=== PATIENT | female | born 1960 | race Caucasian/White ===

== ENCOUNTER → 2019-09-08 09:00 | Outpatient (CLI) | payer BC, SELFPAY ==
--- NOTE | ~2019-09-08 | DEXA_ITS ---
Bone Density Report Name: Nguyen Steward Age: 59 Sex: Female Ethnicity: White Date of : 1960 Indication: postmenopausal; screening for osteoporosis; height loss; prior fracture; Referring Provider: RACHELE HOSKINS Study: Bone densitometry was performed. Exam Date: September 08, 2019 Accession number: [id number] Bone Density: Region BMD T-score Z-score Classification AP Spine (L1-L4) 0.707 -3.1 -1.7 Osteoporosis Femoral Neck (Left) 0.618 -2.1 -0.8 Osteopenia Total Hip (Left) 0.739 -1.7 -0.7 Osteopenia Femoral Neck (Right) 0.588 -2.4 -1.1 Osteopenia Total Hip (Right) 0.729 -1.7 -0.8 Osteopenia Total Hip Mean 0.734 -1.7 -0.8 Osteopenia World Health Organization criteria for BMD impression classify patients as: Normal (T-score at or above -1.0), Osteopenia (T-score between -1.0 and -2.5), or Osteoporosis (T-score at or below -2.5). 10-year Fracture Risk: FRAX not reported because: Some T-score for Spine Total or Hip Total or Femoral Neck at or below -2.5 Clinical Information Provided by Patient: Has had a low trauma fracture Has used the following medications: Vitamin D Patient maximum height was 65.0 Menopause Age: 55 Onset of menses at age 13 Number of children 2 Impression: The patient has established osteoporosis, based on the Total Spine T-score and the existence of a prior fracture. The patient has risk factors, including: previous fracture. Discussion: HIGH RISK OF FRACTURE. BONE DENSITY IS UNDESIRABLY LOW AT ONE OR MORE SKELETAL SITES, CONSISTENT WITH POSTMENOPAUSAL OSTEOPOROSIS. This patient's lowest T-score, in a patient who has previously fractured, meets the World Health Organization's (WHO) criteria for severe osteoporosis. In untreated patients, the risk of osteoporotic fracture increases approximately two-fold for each 1.0 SD decrease in T-score. Low bone density is not the only risk factor for fracture; also consider factors such as patient's age, frailty or poor health, risk of falling, risk of injury, previous osteoporotic fracture, family history of osteoporosis, cigarette smoking, low body weight, etc. Not everyone with low bone mineral density has osteoporosis; osteomalacia and other metabolic bone disorders should also be considered. Patients who have osteoporosis should be evaluated for specific diseases and conditions (secondary causes) that may cause or contribute to bone loss. The [place] [employer]ocr[employer] (AACE) and National Osteoporosis Foundation (NOF) recommend pharmacologic intervention for all postmenopausal women whose T-score is in this range. The patient should follow a healthful lifestyle (good nutrition with adequate calcium and vitamin D, and appropriate weight-bearing exercise). Follow-Up: Consider a repeat BMD and Vertebral Fracture Assessmen
== END ==
PROVIDERS: PCP Orthopaedic Surgery; Visit Provider Orthopaedic Surgery
DX: M81.0 Age-related osteoporosis without current pathological fracture (principal); Z78.0 Asymptomatic menopausal state; M85.851 Other specified disorders of bone density and structure, right thigh; M85.852 Other specified disorders of bone density and structure, left thigh
CPT/HCPCS: 77080

== ENCOUNTER 2022-06-10 16:31 | Emergency (ER) | payer BC, SELFPAY ==
--- NOTE | ~2022-06-10 | XR_ITS ---
XR chest 2V DATE: 06/10/2022 17:17 INDICATION: Midsternal chest pain for 4 days. TECHNIQUE: PA and lateral views COMPARISON: 08/23/2017 CTA chest 08/23/2017 PA and lateral chest FINDINGS: Normal heart size. No hilar or mediastinal enlargement. Moderate bilateral hyperinflation. No pulmonary infiltrate or consolidation, pleural effusion or pulmonary vascular congestion or pneumo thorax. Scoliosis and degenerative spurring of the thoracic spine. Osteopenia. Screws are noted in the right shoulder area. IMPRESSION: Moderate hyperinflation; no active cardiopulmonary disease or significant change since Reviewed, dictated and finalized at location A. IMPRESSION: Moderate hyperinflation; no active cardiopulmonary disease or signi ficant change since 08/23/2017
--- NOTE | 2022-06-10 16:33 | ECG_ITS ---
Measurements Intervals [place] Rate: 67 P: 63 AK: 159 QRS: 36 QRSD: 91 T: 44 QT: 401 QTc: 426 Interpretive Statements SINUS RHYTHM NORMAL ECG NO PREVIOUS ECG AVAILABLE FOR COMPARISON Electronically Signed On 06-10-2022 21:04:11 CDT by Caesar Whitlock D.O.
[2022-06-10 17:00] VITALS: BP 126/79; PULSE 70; RESP 16; TEMP 36.7; O2SAT 98
[2022-06-10 17:00] LABS: Basophils Absolute Auto 0.1 K/mm3 (0.0-0.1); Basophils Percent Auto 0.6 % (0.2-1.2); Eosinophils Absolute Auto 0.3 K/mm3 (0-0.3); Eosinophils Percent Auto 3.9 % (0-4.4); Hematocrit 39.2 % (37.0-47.0); Immature Granulocyte Absolute 0.02 K/mm3 (0.00-0.031); Immature Granulocyte Percent A 0.3 % (0-0.5); Lymphocytes Absolute Auto 3.96 K/mm3 (0.9-3.2); Lymphocytes Percent Auto 51.1 % (18.3-44.2); Mean Corpuscular HGB Conc 33.2 g/dl (32-36); Mean Corpuscular Volume 87.5 fl (80-100); Mean Platelet Volume 8.9 fl (7.4-10.4); Monocytes Absolute Auto 0.6 K/mm3 (0.1-0.6); Monocytes Percent Auto 7.2 % (2.6-8.5); Neutrophils Absolute Auto 2.9 K/mm3 (1.3-6.7); Neutrophils Percent Auto 36.9 % (45.5-73.1); Platelet Count Result 250 k/mm3 (150-375); Red Blood Count 4.48 M/mm3 (4.2-5.4); Red Cell Distribution Width 12.7 % (11.5-14.5); White Blood Count 7.8 K/mm3 (4.5-10.0)
[2022-06-10 17:12] LABS: Potassium 3.6 mmol/L (3.4-5.0)
[2022-06-10 17:23] LABS: Alanine Aminotransferase 26 U/L (6-35); Albumin Level 4.5 g/dL (3.5-5.1); Alkaline Phosphatase 56 U/L (38-126); Anion Gap 13 mmol/L (8-16); Aspartate Amino Transferase 32 U/L (14-36); Bilirubin,Total 0.2 mg/dL (0.2-1.3); Blood Urea Nitrogen 16 mg/dL (7-17); Calcium 8.6 mg/dL (8.4-10.2); Carbon Dioxide 25 mmol/L (22-30); Chloride 102 mmol/L (98-107); Estimated CRCL calculation 55 ml/min; Estimated Glomerular Filt Rate > 60; Glucose 107 mg/dL (65-110); Lipase 109 U/L (23-300); Sodium 140 mmol/L (137-145)
[2022-06-10 17:24] LABS: Troponin I < 0.012 ng/mL (0.000-0.034)
[2022-06-10 17:30] LABS: Partial Thromboplastin Time 27.2 SECONDS (22.3-36.8)
[2022-06-10 19:20] VITALS: BP 141/87; PULSE 61; RESP 183; O2SAT 100
--- NOTE | 2022-06-10 19:43 | ED.CHESTPAIN ---
HPI - Chest Pain General Chief Complaint: Chest Pain Stated Complaint: CHEST PAIN [id number] Time Seen by Provider: 06/10/22 19:05 History of Present Illness HPI narrative: Patient is a 61-year-old female who presents ER with chest discomfort. Reports she had 1 episode 5 days ago that occurred while she was helping move some items off of the truck. There is aching and went away with drinking glass water. Today patient was laying on a couch when she started having aching chest pressure as well as aching in bilateral jaws. She then felt some discomfort in her right shoulder. Symptoms lasted several minutes and then laterally on the arm. No diaphoresis or nausea or vomiting or dizziness. No exertional chest discomfort today. Reports regular exercising and walks 2 miles to work and 2 miles back each day. No history of cardiac disease. Reports she has been treated hyperlipidemia. She is a non-smoker. Patient unsure if she could have acid reflux as she also does not typically have those symptoms either. Due to recurrence of symptoms she felt evaluation will be pertinent. Related Data Home Medications Medication Instructions Recorded Confirmed niacin 500 mg tablet 500 mg PO DAILY 06/27/19 12/19/19 zinc 50 mg tablet (Chelated Zinc) 50 mg PO DAILY 06/27/19 12/19/19 calcium citrate 1,000 mg tablet 1,000 mg PO BID 09/22/19 12/19/19 ascorbic acid (vitamin C) 500 mg mg PO 10/07/19 12/19/19 capsule elderberry fruit 200 mg capsule mg PO 10/07/19 12/19/19 ferrous sulfate 325 mg (65 mg 325 mg PO DAILY 10/07/19 12/19/19 iron) tablet (Feosol) vitamin A 2,400 mcg capsule 8,000 unit PO DAILY 10/07/19 12/19/19 vitamin B comp and C no.3 15 mg-10 1 cap PO DAILY 10/07/19 12/19/19 mg-50 mg-5 mg-300 mg capsule (B Complex Plus Vitamin C) cholecalciferol (vitamin D3) 125 125 mcg PO DAILY 12/19/19 12/19/19 mcg (5,000 unit) capsule Allergies Allergy/AdvReac Type Severity Reaction Status Date / Time hydromorphone [From Dilaudid] Allergy Hallucinati Verified 01/03/20 09:03 ng tramadol AdvReac Mild vomit Verified 01/03/20 09:03 acetaminophen AdvReac Vomiting Verified 01/03/20 09:03 [From Tylenol-Codeine] codeine AdvReac Vomiting Verified 01/03/20 09:03 [From Tylenol-Codeine] GENERAL ANESTHESIA AdvReac Unknown Vomiting Uncoded 01/03/20 09:03 Review of Systems Review of Systems: All systems reviewed & are unremarkable except as noted in HPI and below Constitutional: Constitutional: Denies chills, Denies fatigue and Denies fever(s) ENT: Denies nasal congestion and Denies sore throat Cardiovascular: Cardiovascular: Reports chest pain, Denies rapid heart rate, Reports radiating jaw, neck or arm pain and Denies slow heart rate Respiratory: Respiratory: Denies cough and Denies dyspnea Gastrointestinal: Gastrointestinal: Denies abdominal pain, Denies nausea and Denies vomiting Musculoskeletal: Musculoskeletal: Denies arthralgias and Denies joint swelling PMFSH Past Medical History Medical History (Updated 06/10/22 @ 20:30 by Juan A Squires MD) Complex posttraumatic stress disorder COVID-19 Depression Fracture, ankle Right Hammer toe Knee pain Neck pain Urinary frequency Surgical History Surgical History (Updated 06/27/19 @ 08:09 by Debra Barry [facility]) H/O section H/O shoulder surgery Right 2017 Family History Family History (Updated 06/27/19 @ 08:09 by Debra Barry [facility]) Father Alzheimer disease Mother Hypertension Cancer Alzheimer disease Social History Social History (Updated 06/27/19 @ 08:10 by Debra Barry [facility]) Smoking status: Never smoker Alcohol intake: current Alcohol use details: Pt drinks socially. Substance use: never Gender identity (if verbalized by the patient): Female Exam Narrative: GENERAL: Well-appearing, well-nourished, and in no acute distress. HEAD: Normocephalic, atraumatic. EYES: PERRL and EOMI. CHEST: Clear to auscult
[2022-06-10 20:22] LABS: Troponin I < 0.012 ng/mL (0.000-0.034)
[2022-06-10 20:34] VITALS: BP 144/93; PULSE 60; RESP 18; O2SAT 100
== END 2022-06-10 20:38 | disposition home or self-care (01) ==
PROVIDERS: Emergency Medicine; Emergency Provider Emergency Medicine; PCP Family Medicine
DX: R07.89 Other chest pain (principal); E78.5 Hyperlipidemia, unspecified; Z86.16 Personal history of COVID-19
CPT/HCPCS: 36415; 71046; 80053; 83690; 84484; 85025; 85610; 85730; 93005; 99284

== ENCOUNTER 2024-10-18 15:06 | Emergency (ER) | payer MEDICARE, SELFPAY ==
[2024-10-18 15:18] VITALS: BP 147/68; PULSE 76; RESP 16; TEMP 37; O2SAT 99
--- NOTE | 2024-10-18 15:24 | ED_ITS ---
HPI - General Adult General Chief complaint: Allergic Reaction Stated complaint: High B/P, Allergic Reaction Time Seen by Provider: 10/18/24 15:20 Source: patient, RN notes reviewed and old records reviewed Mode of arrival: ambulatory Limitations: no limitations History of Present Illness HPI narrative: 64-year-old female presents [facility] with concerns for a reaction to a medication. In to have her blood pressure checked. Patient reports yesterday she saw an orthopedic, had a steroid injection into the left shoulder due to tendinitis. States that she woke up in middle the night feeling sweaty and flushed. [place] flushed at work, blood pressure was checked at work. States it was elevated. Onset (ago): hour(s) Related Data Home Medications ?Medication ?Instructions ?Recorded ?Confirmed ?Last Taken ?Type niacin 500 mg tablet 500 mg PO DAILY 06/27/19 12/19/19 Unknown History zinc 50 mg tablet (Chelated Zinc) 50 mg PO DAILY 06/27/19 12/19/19 Unknown History calcium citrate 1,000 mg tablet 1,000 mg PO BID 09/22/19 12/19/19 Unknown History ascorbic acid (vitamin C) 500 mg mg PO 10/07/19 12/19/19 Unknown History capsule elderberry fruit 200 mg capsule mg PO 10/07/19 12/19/19 Unknown History ferrous sulfate 325 mg (65 mg 325 mg PO DAILY 10/07/19 12/19/19 Unknown History iron) tablet (Feosol) vitamin A 2,400 mcg capsule 8,000 unit PO DAILY 10/07/19 12/19/19 Unknown History vitamin B comp and C no.3 15 mg-10 1 cap PO DAILY 10/07/19 12/19/19 Unknown History mg-50 mg-5 mg-300 mg capsule (B Complex Plus Vitamin C) cholecalciferol (vitamin D3) 125 125 mcg PO DAILY 12/19/19 12/19/19 Unknown History mcg (5,000 unit) capsule Allergies Allergy/AdvReac Type Severity Reaction Status Date / Time hydromorphone (From Dilaudid) Allergy Hallucinati Verified 01/03/20 09:03 ng tramadol AdvReac Mild vomit Verified 01/03/20 09:03 acetaminophen (From AdvReac Vomiting Verified 01/03/20 09:03 Tylenol-Codeine) codeine (From AdvReac Vomiting Verified 01/03/20 09:03 Tylenol-Codeine) GENERAL ANESTHESIA AdvReac Unknown Vomiting Uncoded 01/03/20 09:03 Review of Systems Review of Systems: All systems reviewed & are unremarkable except as noted in HPI and below Constitutional: Constitutional: Reports no additional constitutional complaints ENT: Reports system reviewed and no additional complaints, except as documented Cardiovascular: Cardiovascular: Reports no additional cardiovascular compla ints, Denies chest pain and Denies dyspnea Respiratory: Respiratory: Reports no additional respiratory complaints, Denies chest congestion, Denies cough and Denies dyspnea Musculoskeletal: Musculoskeletal: Reports no additional musculoskeletal complaints Integumentary/Breasts: Skin/Breast: Reports as per HPI PMF Past Medical History Medical History COVID-19 Fracture, ankle Right Complex posttraumatic stress disorder Neck pain Knee pain Depression Urinary frequency Hammer toe Surgical History Surgical History H/O shoulder surgery Right 2017 H/O section Family History Family History Father Alzheimer disease Mother Hypertension Cancer Alzheimer disease Social History Social History Smoking status: Never smoker Alcohol intake: current Alcohol use details: Pt drinks socially. Substance use: never Gender identity (if verbalized by the patient): Female Comments At the time of my signature, I reviewed and agree with the nursing past medical, surgical, social, and family history. There is no relevant family history pertinent to the patient complaint. Exam Const: General: cooperative, healthy appearing, comfortable, no acute distress, well developed, alert and well nourished Nutritional Appearance: well nourished Orientation/consciousness: patient oriented x3 Limitations: no limitations HENMT: Head: normal to inspection Mouth: Yes Normal oral and palatal mucosa present, Yes lip normal, Yes tongue normal and Yes moist mucous membranes Eyes: General: appearance normal, both eyes and all related structures Alignment and Position: alignment normal Neck: Neck: normal visual inspection, full ROM, no lymphadenopathy and no meningeal signs Chest: Chest palpation & inspection: normal inspection of the chest Resp: Effort & Inspection: normal respiratory effort and able to speak in complete sentences Auscultation: clear to auscultation bilaterally, no crackles, no rales, no rhonchi and no wheezes Cardio: Rate: regular rate Skin: General skin exam: normal color and no rashes or lesions noted Neuro: General: patient oriented x3, gait normal, moves all extremities and no meningeal signs Cognition (Neuro): normal cognition Speech: normal speech Gait exam (Neuro): Normal gait present Extrem: General: normal to inspection, full ROM, capillary refill normal and normal gait Psych: Appearance: grossly normal and well kempt Mental Status: mental status grossly normal Speech and movement: Normal speech and movement present and Clear speech present Affect: normal affect Attitude: cooperative Course Course Level of Care: Express Care Visit Vital Signs Vital signs: Vital Signs Temperature 98.6 F 10/18/24 15:18 Pulse Rate 76 10/18/24 15:18 Respiratory Rate 16 10/18/24 15:18 Blood Pressure 147/68 H 10/18/24 15:18 Pulse Oximetry 99 10/18/24 15:18 Oxygen Delivery Room Air 10/18/24 15:18 Temperature 98.6 F 10/18/24 15:18 Pulse Rate 76 10/18/24 15:18 Respiratory Rate 16 10/18/24 15:18 Blood Pressure 145/60 H 10/18/24 15:35 Pulse Oximetry 99 10/18/24 15:18 Oxygen Delivery Room Air 10/18/24 15:18 Reviewed Medical Decision Making MDM Narrative Medical decision making narrative: Patient sitting comfortably in exam room. Nontoxic, vitals stable. Patient in no acute distress Patient presents for concerns of and reaction to a steroid shot yesterday. Reports elevated blood pressure reading, reports feeling hot and flushed. Reports sweating. Discussed this with patient's that if it was a steroid that this is common side effect of steroids. Blood pressure manually checked 140/60. Educated patient on common side effects of steroids as well as how to properly take blood pressure at home. Patient verbalized understanding Discharge instructions reviewed with patient, as well as provided in writing per nursing staff. The instructions also include specific and strict return/GO TO THE ER as well as f/u information. All questions have been answered, and the patient deny any further questions with discharge and discharge plan. Some parts of this dictation were generated by voice recognition software and may contain typographical and/or grammatical inaccuracies. Differential Diagnosis Differential Diagnosis: Reaction to steroids, Medical Records Medical records reviewed: Yes I reviewed the external patient's medical records. Vital Signs Vital Signs: Vital Signs Temperature 98.6 F 10/18/24 15:18 Pulse Rate 76 10/18/24 15:18 Respiratory Rate 16 10/18/24 15:18 Blood Pressure 147/68 H 10/18/24 15:18 Pulse Oximetry 99 10/18/24 15:18 Oxygen Delivery Room Air 10/18/24 15:18 Temperature 98.6 F 10/18/24 15:18 Pulse Rate 76 10/18/24 15:18 Respiratory Rate 16 10/18/24 15:18 Blood Pressure 145/60 H 10/18/24 15:35 Pulse Oximetry 99 10/18/24 15:18 Oxygen Delivery Room Air 10/18/24 15:18 Reviewed Lab Data Lab results reviewed: Yes I reviewed the patient's lab results. Labs: Reviewed Critical Care Time Critical Care Time Critical Care Time: No Discharge Plan Discharge Clinical Impression: Blood pressure check Adverse reaction to drug Qualifiers: Encounter type: initial encounter Qualified Code(s): T50.905A - Adverse effect of unspecified drugs, medicaments and biological substances, initial encounter Condition: Stable Instructions: How to Take a Blood Pressure Reading (ED), Steroid Joint Injection (DC) Patient Language: Amharic Prescriptions: No Action vitamin A 8,000 unit capsule 8,000 unit PO DAILY ascorbic acid (vitamin C) 500 mg capsule PO elderberry fruit 200 mg capsule PO B Complex Plus Vitamin C [id number] mg capsule 1 cap PO DAILY Rx Instructions: give with food (meal/snack) ferrous sulfate [Feosol] 325 mg (65 mg iron) tablet 325 mg PO DAILY cholecalciferol (vitamin D3) 125 mcg (5,000 unit) capsule 125 mcg PO DAILY niacin 500 mg tablet 500 mg PO DAILY zinc [Chelated Zinc] 50 mg tablet 50 mg PO DAILY calcium citrate 1,000 mg tablet 1,000 mg PO BID alendronate [Fosamax] 70 mg tablet 70 mg PO WEEKLY Qty: 12 2RF Rx Instructions: Take with water, 30 minutes before meals, drinks, other meds Follow-up/Referrals: PHYSICIAN,SOCIAL SECURITY BENEFITS INTERVIEWER [Primary Care Provider] - Time of Disposition: 15:43
[2024-10-18 15:35] VITALS: BP 145/60
== END 2024-10-18 15:50 | disposition home or self-care (01) ==
PROVIDERS: Emergency Provider Nurse Practitioner
DX: Z01.31 Encounter for examination of blood pressure with abnormal findings (principal); R61 Generalized hyperhidrosis; R23.2 Flushing; T38.0X5A Adverse effect of glucocorticoids and synthetic analogues, initial encounter; Z86.16 Personal history of COVID-19
CPT/HCPCS: 99211; G0463